=== PATIENT | female | born 1990 | race Caucasian/White ===

== ENCOUNTER 2019-08-22 12:17 | Day surgery (SDC) | payer BC ==
[2019-08-22] MEDS ORDERED: ceFAZolin 1 GM Vial ONE (12:34)
[2019-08-22] MEDS ORDERED: Sodium Chloride 0.9% 20 ML ONE (12:34)
[2019-08-22] MEDS ORDERED: fentaNYL 250 MCG/5 ML SDV ONE (12:35)
[2019-08-22] MEDS ORDERED: Midazolam 1 MG/ML 2 ML SDV ONE (12:35)
[2019-08-22] MEDS ORDERED: Propofol 200 MG/20 ML SDV ONE (12:35)
[2019-08-22] MEDS ORDERED: Ketorolac 30 MG/ML SDV ONE (12:38)
[2019-08-22] MEDS ORDERED: Ondansetron 4 MG/2 ML SDV ONE (12:38)
[2019-08-22] MEDS ORDERED: Lidocaine 2% 5 ML SDV ONE (12:38)
[2019-08-22] MEDS ORDERED: Rocuronium 100 MG/10 ML Syringe ONE (12:38)
[2019-08-22] MEDS ORDERED: Glycopyrrolate 0.2 MG/ML SDV ONE (12:38)
[2019-08-22] MEDS ORDERED: Bupivacaine 0.25% 10 ML SDV ONE (12:39)
[2019-08-22] MEDS ORDERED: Lactated Ringers 1,000 ML IV SCH (12:45)
[2019-08-22] MEDS ORDERED: Sugammadex Sodium 200 MG/2 ML VIAL ONE (12:46)
--- NOTE | 2019-08-22 13:09 | PCM.PREANE ---
Preanesthetic Assessment - Anesthesia/Transfusion/Family Hx Anesthesia History: Prior Anesthesia Without Reaction Family History of Anesthesia Reaction: No Transfusion History: No Prior Transfusion(s) - Review of Systems General: No Symptoms Pulmonary: No Symptoms Cardiovascular: No Symptoms Gastrointestinal: Abdominal Pain Neurological: No Symptoms Other: Reports: None - Physical Assessment NPO Status Date: 08/22/19 NPO Status Time: 06:45 Vital Signs: Last Vital Signs Temp 97.0 F 08/22/19 12:50 Pulse 84 08/22/19 12:50 Resp 18 08/22/19 12:50 BP 126/63 08/22/19 12:50 Pulse Ox 98 08/22/19 12:50 Height: 5 ft 6 in Weight: 89.358 kg ASA Class: 2E Mental Status: Alert & Oriented x3 Airway Class: Mallampati = 2 Dentition: Reports: Normal Dentition ROM/Head Extension: Full Lungs: Clear to Auscultation, Normal Respiratory Effort Cardiovascular: Regular Rate, Regular Rhythm - Allergies Allergies/Adverse Reactions: Allergies Allergy/AdvReac Type Severity Reaction Status Date / Time No Known Allergies Allergy Verified 08/22/19 12:33 - Blood Blood Available: No - Anesthesia Plan Pre-Op Medication Ordered: None - Acknowledgements Anesthesia Type Planned: General Anesthesia Pt an Appropriate Candidate for the Planned Anesthesia: Yes Alternatives and Risks of Anesthesia Discussed w Pt/Guardian: Yes Pt/Guardian Understands and Agrees with Anesthesia Plan: Yes Additional Comments: 16 week gest with partial ovarian torsion. PMH: thyroid replacement, npo 5 hours - youcaitlyn an fruit PLAN: get PreAnesthesia Questionnaire HEENT History: Reports: Other (See Below) Other HEENT History: wears contacts Cardiovascular History: Reports: None Respiratory History: Reports: None Gastrointestinal History: Reports: None Genitourinary History: Reports: Other (See Below) Other Genitourinary History: UTI's in the past Musculoskeletal History: Reports: None Neurological History: Reports: None Psychiatric History: Reports: Anxiety Endocrine/Metabolic History: Reports: Hypothyroidism, Obesity/BMI 30+ Hematologic History: Reports: None Immunologic History: Reports: None Oncologic (Cancer) History: Reports: None Dermatologic History: Reports: None - Past Surgical History Head Surgeries/Procedures: Reports: None HEENT Surgical History: Reports: Oral Surgery Cardiovascular Surgical History: Reports: None Respiratory Surgical History: Reports: None GI Surgical History: Reports: None Female Surgical History: Reports: None Endocrine Surgical History: Reports: None Neurological Surgical History: Reports: None Musculoskeletal Surgical History: Reports: None Oncologic Surgical History: Reports: None Dermatological Surgical History: Reports: None - SUBSTANCE USE Smoking Status *Q: Never Smoker - HOME MEDS Home Medications: Home Meds Calcium Carb/Vitamin D3/Vit K1 [Calcium + D Soft Chewable Tab] 1 tab.chew CHEW DAILY 08/22/19 [History] Levothyroxine [Synthroid] 100 mcg PO DAILY 08/22/19 [History] Pnv No.95/Ferrous Fum/Folic AC [ Vitamin Tablet] 1 tab PO DAILY [History] Vytron C 1 tab PO DAILY 08/22/19 [History] - CURRENT (IN HOUSE) MEDS Current Meds: Current Medications Lactated Ringer's (Ringers, Lactated) 1,000 mls @ 100 mls/hr IV ASDIRECTED MEAGHAN Last Admin: 08/22/19 12:58 Dose: 100 mls/hr Discontinued Medications Bupivacaine HCl (Sensorcaine-Mpf 0.25%) Confirm Administered Dose 10 ml .ROUTE .STK-MED ONE Stop: 08/22/19 12:40 Cefazolin Sodium (Ancef) Confirm Administered Dose 2 gm .ROUTE .STK-MED ONE Stop: 08/22/19 12:35 Fentanyl (Sublimaze) Confirm Administered Dose 250 mcg .ROUTE .STK-MED ONE Stop: 08/22/19 12:36 Glycopyrrolate (Robinul) Confirm Administered Dose 0.2 mg .ROUTE .STK-MED ONE Stop: 08/22/19 12:39 Sodium Chloride (Normal Saline) Confirm Administered Dose 20 mls @ as directed .ROUTE .STK-MED ONE Stop: 08/22/19 12:35 Ketorolac Tromethamine (Toradol) Confirm Administered Dose 30 mg .ROUTE .STK- MED ONE Stop: 08/22/19 12:39 Lidocaine (Xylocaine-Mpf 2%) Confirm Administered Dose 5 ml .ROUTE .STK-MED ONE Stop: 08/22/19 12:39 Midazolam HCl (Versed 1 Mg/Ml) Confirm Administered Dose 2 mg .ROUTE .STK-MED ONE Stop: 08/22/19 12:36 Ondansetron HCl (Zofran) Confirm Administered Dose 4 mg .ROUTE .STK-MED ONE Stop: 08/22/19 12:39 Propofol (Diprivan 20 Ml) Confirm Administered Dose 200 mg .ROUTE .STK-MED ONE Stop: 08/22/19 12:36 Rocuronium [place] (Zemuron) Confirm Administered Dose 100 mg .ROUTE .STK-MED ONE Stop: 08/22/19 12:39 Sugammadex Sodium (Bridion) Confirm Administered Dose 200 mg .ROUTE .STK-MED ONE Stop: 08/22/19 12:47
[2019-08-22] MEDS ORDERED: Phenylephrine/Normal Saline 100 MCG/ML 10 ML Syringe ONE (13:23)
[2019-08-22] MEDS ORDERED: ePHEDrine 50 MG/ML SDV ONE (13:36)
[2019-08-22] MEDS ORDERED: fentaNYL 100 MCG/2 ML SDV IVPUSH PRN (14:06)
[2019-08-22] MEDS ORDERED: fentaNYL 100 MCG/2 ML SDV ONE (14:20)
[2019-08-22] MEDS ORDERED: Octyl 2-Cyanoacrylate 1 Tube ONE (14:28)
[2019-08-22] MEDS ORDERED: Acetaminophen/HYDROcodone 325-5 MG Tab PO PRN (14:42)
--- NOTE | 2019-08-22 15:27 | PCM.POSTAN ---
POST ANESTHESIA ASSESSMENT - MENTAL STATUS Mental Status: Alert - VITAL SIGNS Vital Signs: Last Vital Signs Temp 36.2 C 08/22/19 15:17 Pulse 103 H 08/22/19 15:17 Resp 16 08/22/19 15:17 BP 127/68 08/22/19 15:17 Pulse Ox 100 08/22/19 15:17 - RESPIRATORY Respiratory Status: Respiratory Rate WNL - CARDIOVASCULAR CV Status: Pulse Rate WNL - GASTROINTESTINAL GI Status: No Symptoms - POST OP HYDRATION Hydration Status: Adequate & Stable
--- NOTE | 2019-08-22 15:47 | PCM48HPAN ---
Post Anesthesia Note - EVALUATION WITHIN 48HRS OF ANESTHETIC Vital Signs in Normal Range: Yes Patient Participated in Evaluation: Yes Respiratory Function Stable: Yes Airway Patent: Yes Cardiovascular Function Stable: Yes Hydration Status Stable: Yes Pain Control Satisfactory: Yes Nausea and Vomiting Control Satisfactory: Yes Mental Status Recovered: Yes Vital Signs: Last Vital Signs Temp 36.2 C 08/22/19 15:17 Pulse 77 08/22/19 15:37 Resp 16 08/22/19 15:37 BP 121/66 08/22/19 15:37 Pulse Ox 100 08/22/19 15:37
--- NOTE | 2019-08-22 23:51 | OR ---
SURGEON: Toni Hendrickson MD DATE OF PROCEDURE: 08/22/2019 INDICATION: A 28-year-old G1, P0, at 16 weeks 4 days of gestation presenting with suspected ovarian torsion. The patient was noted to have a 10 cm simple appearing right ovarian cyst on first trimester dating ultrasound and was asymptomatic. She was being monitored with ultrasounds and the ovarian cyst has stayed stable in size. She presented to clinic today with new onset colicky right lower quadrant pain consistent with ovarian torsion. Cyst was confirmed to still have blood flow on pelvic ultrasound. Also noted normal fetus with cardiac activity. Discussed with the patient expectant management versus surgical treatment with the consideration that the symptoms might continue or recur with intermittent torsion and 2nd trimester is an appropriate time to perform ovarian cystectomy. She desired to have surgical management, Discussed risks of procedure, all questions were answered and consent signed. PREOPERATIVE DIAGNOSES: 1. Right ovarian cyst with torsion. 2. [place] intrauterine at 16 weeks and 4 days. POSTOPERATIVE DIAGNOSES: 1. Right ovarian cyst with torsion. 2. [place] intrauterine at 16 weeks and 4 days. PROCEDURE PERFORMED: Diagnostic laparoscopy, right ovarian cystectomy. ANESTHESIA: General anesthesia. ANESTHESIOLOGIST: Dr. Ubaldo Rodriguez. ESTIMATED BLOOD LOSS: 15 mL. FINDINGS: Large fluid-filled right ovarian cyst with torsion. Did not appear to have compromise to blood flow. Cyst fluid was straw colored and without any blood or solid component. Normal-appearing uterus. DESCRIPTION OF PROCEDURE: The patient was brought to the operating room. 2 g Ancef IV was given. She underwent general anesthesia with no complications. She was placed in dorsal lithotomy position and her legs supported using stirrups. Careful to relieve all pressure points. She was prepped and draped in the usual sterile fashion. Straight catheter was used to drain the bladder. Bimanual exam was performed. The cervix was long and closed. Uterus was 16-week size, mobile, and anteverted. A sponge on a ring forceps was placed in the vagina for uterine manipulation. Attention was then turned to the abdomen. A 5 mm incision was made at [place] point, OG was placed to decompress the stomach. Veress needle was used for entry. Intraperitoneal location was confirmed in the usual fashion. CO2 gas was initiated with low opening pressure and pneumoperitoneum to 15 mmHg was achieved. Optiview trocar was placed under visualization with laparoscope. Intraperitoneal location was confirmed. No visceral or vascular injury was noted. Survey of the abdomen noted a 16-week sized uterus.The right ovary had a large cyst that appeared to be fluid-filled. The right fallopian tube was twisted on itself, but appears to have normal blood flow. The left ovary and tube was not visualzed since it was behind the gravid uterus and covered by surrounding bowel with small amount of adhesions. A 5 mm trocar was placed in the left lower quadrant under laparoscopic visualization, followed by another 10 mm trocar in the right lower quadrant. Atraumatic grasper was used to sweep the bowel away from the pelvis. Laparoscopic needle was used to drain fluid from the large ovarian cyst. The cyst fluid was straw colored and did not have any solid components or blood. Approximately 250 mL of fluid was removed from the cyst. The grasper was then used to untwist the ovary and the fallopian tube. LigaSure device was used to make a larger incision on the ovarian cyst wall, and the incision was extended lengthwise along the ovarian cyst. The cyst was not distinct from the surrounding ovarian tissue. Hemostasis was confirmed at the incision site. The pressure was then reduced to 5 mmHg and hemostasis was again confirmed. Pneumoperitoneum was then relieved and all instruments were removed. The port sites were closed using 3-0 Monocryl in a subcuticular fashion. Dermabond was placed over the incision. The patient was cleaned and the sponge was removed from the vagina. Sponge, lap , and instrument counts were correct. The patient was awoken from anesthesia in stable condition and taken to the recovery room. EZ HUANG /[id number] LY
== END 2019-08-22 16:25 | disposition home or self-care (01) ==
LOC: MW.SDS 12:17
PROVIDERS: ATTEND Obstetrics & Gynecology
DX: O34.82 Maternal care for other abnormalities of pelvic organs, second trimester (principal); O99.282 Endocrine, nutritional and metabolic diseases complicating pregnancy, second trimester; O99.212 Obesity complicating pregnancy, second trimester; N83.201 Unspecified ovarian cyst, right side; N83.511 Torsion of right ovary and ovarian pedicle; E03.9 Hypothyroidism, unspecified; E66.9 Obesity, unspecified; Z3A.16 16 weeks gestation of pregnancy; Z79.899 Other long term (current) drug therapy; Z68.31 Body mass index [BMI] 31.0-31.9, adult
CPT/HCPCS: 36415; 58662; 85027; A9270; J0690; J1885; J2001; J2370; J2405; J2704; J3010; J3490; J7120; 88104; J2250